=== PATIENT | female | born 1995 | race Two or more races ===

== ENCOUNTER 2023-03-04 15:19 | Inpatient (IN) | payer MEDICAID ==
[~2023-03-04] VITALS: Ht 167.6 cm; Wt 72.1 kg
[2023-03-04 17:10] LABS: COVID AG,FIA SOURCE NASAL SWAB
[2023-03-04 17:11] LABS: BASOPHILS % (AUTO) 1.4 % (0.0-2.0); EOSINOPHILS % (AUTO) 0.5 % (1.0-6.0); HEMATOCRIT 37.9 % (36-46); HEMOGLOBIN 12.7 g/dL (12.0-16.0); LYMPHOCYTES # (AUTO) 1.6 K/uL (1.0-4.8); LYMPHOCYTES % (AUTO) 20.2 % (22.0-44.0); MEAN CORPUSCULAR HEMOGLOBIN 30.3 pg (26.0-34.0); MEAN CORPUSCULAR HGB CONC 33.4 G/dL (31.0-37.0); MEAN CORPUSCULAR VOLUME 91 fL (80-100); MONOCYTES # (AUTO) 0.5 K/uL (0.1-1.0); NEUTROPHILS # (AUTO) 5.8 K/uL (1.8-7.7); NEUTROPHILS % (AUTO) 71.9 % (40.0-70.0); PLATELET COUNT (AUTO) 223 K/uL (150-450); RED BLOOD CELL COUNT(AUTO) 4.18 MIL/uL (4.00-5.20)
[2023-03-04 17:21] LABS: CALCIUM, TOTAL 8.8 mg/dL (8.8-10.5); CARBON DIOXIDE 25 mmol/L (22-29); CHLORIDE 104 mmol/L (98-107); CREATININE 0.75 mg/dL (0.60-1.30); GLOMERULAR FILTR. RATE CALC > 60 mL/min (>60); GLUCOSE,RANDOM 88 mg/dL (70-110); POTASSIUM 4.2 mmol/L (3.5-5.1); UREA NITROGEN, BLOOD 13 mg/dL (7-18)
[2023-03-04 17:22] LABS: AMPHET/METH SCREEN,URINE NEGATIVE (NEGATIVE); BARBITURATE SCREEN, URINE NEGATIVE (NEGATIVE); BENZODIAZEPINES SCREEN,URINE NEGATIVE (NEGATIVE); CANNABINOID SCREEN,URINE NEGATIVE (NEGATIVE); COCAINE SCREEN,URINE NEGATIVE (NEGATIVE); METHADONE SCREEN, URINE NEGATIVE (NEGATIVE); OPIATE SCREEN,URINE NEGATIVE (NEGATIVE); PHENCYCLIDINE SCREEN,URINE NEGATIVE (NEGATIVE)
[2023-03-04 17:23] LABS: ALCOHOL, URINE DRUG SCREEN NEGATIVE (NEGATIVE)
[2023-03-04 17:27] LABS: ALANINE AMINOTRANSFERASE 20 U/L (12-78); ALBUMIN 2.9 g/dL (3.4-5.0); ALKALINE PHOSPHATASE 76 U/L (46-116); ANION GAP 4 mmol/L (8-16); ASPARTATE AMINOTRANSFERASE 24 U/L (15-37); BILIRUBIN,TOTAL 0.5 mg/dL (0.1-1.0); SODIUM SERUM 133 mmol/L (136-145); TOTAL PROTEIN, SERUM 6.1 g/dL (6.4-8.2)
[2023-03-04 17:29] LABS: ALCOHOL, BLOOD (SERUM) < 3 mg/dL (0-10)
[2023-03-04 17:35] LABS: SARS-COV2 (COVID) ANTIGEN,FIA Negative (Negative)
[2023-03-04] MEDS ORDERED: LORazepam 1 MG TABLET PO PRN (18:00)
[2023-03-04] MEDS ORDERED: QUEtiapine FUMARATE 100 MG TABLET PO PRN (18:00)
[2023-03-04] MEDS ORDERED: ZOLPIDEM TARTRATE 5 MG TABLET PO PRN (18:15)
[2023-03-04 20:33] LABS: APPEARANCE,URINE CLEAR (CLEAR); BILIRUBIN,URINE NEGATIVE (NEGATIVE); COLOR,URINE LIGHT YELLOW (YELLOW); GLUCOSE, URINE (UA) NEGATIVE (NEGATIVE); KETONES,URINE NEGATIVE (NEGATIVE); LEUKOCYTE ESTERASE ,URINE NEGATIVE (NEGATIVE); NITRATE,URINE NEGATIVE (NEGATIVE); OCCULT BLOOD,URINE NEGATIVE (NEGATIVE); PROTEIN,URINE NEGATIVE (NEGATIVE); SPECIFIC GRAVITIY, URINE 1.014 (1.003-1.030); UROBILINOGEN,URINE <=1.0 mg/dL (<=1.0)
[2023-03-05 11:58] VITALS: BP 108/67; PULSE 90; RESP 18; TEMP 97.9; O2SAT 97
[2023-03-05 21:46] VITALS: BP 103/67; PULSE 79; RESP 16; TEMP 97.7; O2SAT 98
[2023-03-06 08:28] VITALS: BP 117/59; PULSE 65; RESP 18; TEMP 97.7; O2SAT 98
[2023-03-06] MEDS: BACITRACIN 28 GM OINTMENT TP SCH (17:28)
[2023-03-06 20:44] VITALS: BP 109/64; PULSE 90; RESP 19; TEMP 98.1; O2SAT 97
[2023-03-07 08:13] VITALS: BP 115/64; PULSE 62; RESP 19; TEMP 97.8; O2SAT 97
[2023-03-07 08:15] LABS: HEMOGLOBIN A1C 4.8 % (3.8-5.6)
[2023-03-07 08:35] LABS: FREE T4 (FREE THYROXINE) 0.72 ng/dL (0.76-1.46); THYROID STIMULATING HORMONE 1.25 uIU/mL (0.36-3.74)
[2023-03-07] MEDS: SERTRALINE HCL 50 MG TABLET PO SCH (08:54)
[2023-03-07] MEDS: BACITRACIN 28 GM OINTMENT TP SCH ×2 (08:55→16:30)
[2023-03-07 10:07] LABS: HEPATITIS C AB (EIA) Non Reactive (Non Reactive)
[2023-03-07 20:16] VITALS: BP 109/67; PULSE 73; RESP 18; TEMP 98.3; O2SAT 96
[2023-03-08] MEDS: SERTRALINE HCL 50 MG TABLET PO SCH (08:20)
[2023-03-08] MEDS: BACITRACIN 28 GM OINTMENT TP SCH ×2 (08:20→17:16)
[2023-03-08 10:36] VITALS: BP 109/64; PULSE 79; RESP 17; TEMP 97.7; O2SAT 97
[2023-03-08 20:12] VITALS: BP 106/70; PULSE 94; RESP 17; TEMP 97.6; O2SAT 95
[2023-03-09 08:43] VITALS: BP 106/66; PULSE 69; RESP 16; TEMP 97.7; O2SAT 97
[2023-03-09] MEDS: SERTRALINE HCL 50 MG TABLET PO SCH (08:45)
[2023-03-09] MEDS: BACITRACIN 28 GM OINTMENT TP SCH ×2 (08:46→17:06)
[2023-03-09 20:09] VITALS: BP 104/70; PULSE 87; RESP 18; TEMP 98; O2SAT 100
[2023-03-10 08:23] VITALS: BP 115/68; PULSE 93; RESP 18; TEMP 98.9; O2SAT 98
[2023-03-10] MEDS: SERTRALINE HCL 50 MG TABLET PO SCH (08:33)
[2023-03-10] MEDS: BACITRACIN 28 GM OINTMENT TP SCH ×2 (08:34→16:33)
[2023-03-10 20:19] VITALS: BP 106/57; PULSE 78; RESP 19; TEMP 98.1; O2SAT 95
[2023-03-11 08:31] VITALS: BP 105/71; PULSE 77; RESP 17; TEMP 98; O2SAT 99
[2023-03-11] MEDS: SERTRALINE HCL 50 MG TABLET PO SCH (09:04)
[2023-03-11] MEDS: BACITRACIN 28 GM OINTMENT TP SCH ×2 (09:04→16:37)
[2023-03-11 20:08] VITALS: BP 105/62; PULSE 91; RESP 18; TEMP 98.1; O2SAT 96
[2023-03-12 08:38] VITALS: BP 107/67; PULSE 98; RESP 17; TEMP 97.9; O2SAT 98
[2023-03-12] MEDS: SERTRALINE HCL 50 MG TABLET PO SCH (08:59)
[2023-03-12] MEDS: BACITRACIN 28 GM OINTMENT TP SCH ×2 (10:08→17:19)
[2023-03-12 20:30] VITALS: BP 114/66; PULSE 60; RESP 19; TEMP 98; O2SAT 98
[2023-03-13] MEDS: BACITRACIN 28 GM OINTMENT TP SCH (08:18)
[2023-03-13] MEDS: SERTRALINE HCL 50 MG TABLET PO SCH (08:18)
[2023-03-13 08:56] VITALS: BP 119/69; PULSE 83; RESP 16; TEMP 97.6; O2SAT 98
[2023-03-13] MEDS ORDERED: SERT-158 PO (11:37)
[2023-03-14] MEDS ORDERED: SERT-439 PO (06:30)
== END 2023-03-13 15:45 | disposition home or self-care (01) | DRG 751 ==
LOC: EMS 15:19 → B2S 03-05 09:08
PROVIDERS: ADMIT Psychiatry & Neurology Psychiatry; ATTEND Psychiatry & Neurology Psychiatry
DX: F33.2 Major depressive disorder, recurrent severe without psychotic features (principal); E87.1 Hypo-osmolality and hyponatremia; F79 Unspecified intellectual disabilities; F25.9 Schizoaffective disorder, unspecified; Z20.822 Contact with and (suspected) exposure to COVID-19; E78.5 Hyperlipidemia, unspecified; F41.9 Anxiety disorder, unspecified; Z59.00 Homelessness unspecified; Z79.899 Other long term (current) drug therapy
CPT/HCPCS: 80053; 80061; 80307; 81003; 83036; 84439; 84443; 84703; 85025; 86803; 87340; 99285; G0480